=== PATIENT | female | born 1995 | race Caucasian/White ===

== ENCOUNTER 2016-12-18 09:12 | Emergency (ER) | payer MEDICAID ==
[~2016-12-18] VITALS: Ht 172.7 cm; Wt 82.0 kg
[2016-12-18 09:23] VITALS: BP 105/67
[2016-12-18] MEDS ORDERED: HYDROcodone/APAP 5/325 TABLET ONE (09:45)
[2016-12-18] MEDS ORDERED: METHOCARBAMOL 750 MG TABLET ONE (09:45)
[2016-12-18] MEDS ORDERED: IBUPROFEN 200 MG TABLET ONE (09:45)
[2016-12-18] MEDS ORDERED: METHOCARBAMOL 750 MG TABLET PO ONE (10:00)
[2016-12-18] MEDS ORDERED: IBUPROFEN 200 MG TABLET PO ONE (10:00)
[2016-12-18] MEDS ORDERED: HYDROcodone/APAP 5/325 TABLET PO ONE (10:00)
[2016-12-18] MEDS ORDERED: DEXAMETHASONE 4 MG TABLET ONE (10:14)
[2016-12-18] MEDS ORDERED: DEXAMETHASONE 4 MG TABLET PO ONE (10:30)
== END 2016-12-18 10:24 | disposition home or self-care (01) ==
LOC: ED 09:59
DX: J03.90 Acute tonsillitis, unspecified (principal)
CPT/HCPCS: 99283

== ENCOUNTER 2017-01-14 12:01 | Emergency (ER) | payer MEDICAID ==
[~2017-01-14] VITALS: Ht 172.7 cm; Wt 82.7 kg
[2017-01-14 12:09] VITALS: BP 103/65
== END 2017-01-14 12:38 | disposition left against medical advice (07) ==
LOC: ED 12:32
DX: R55 Syncope and collapse (principal); R06.02 Shortness of breath; Z53.21 Procedure and treatment not carried out due to patient leaving prior to being seen by health care provider
CPT/HCPCS: 93005

== ENCOUNTER 2018-08-24 09:56 | Emergency (ER) | payer MEDICAID, OTHER ==
[~2018-08-24] VITALS: Ht 172.7 cm; Wt 66.6 kg
[2018-08-24 10:25] VITALS: BP 113/75
--- NOTE | 2018-08-24 10:56 | NUR ---
pt presented to ed with left eye pain. md at bedside.
== END 2018-08-24 11:15 | disposition home or self-care (01) ==
LOC: ED 11:09
DX: H10.32 Unspecified acute conjunctivitis, left eye (principal)
CPT/HCPCS: 99281; 99282